=== PATIENT | male | born 1990 | race Caucasian/White ===

== ENCOUNTER → 2021-09-11 | Outpatient (CLI) | payer OTHER | LOC: RAD 14:45 | PROVIDERS: ATTEND Nurse Practitioner Family | DX: Z04.2 Encounter for examination and observation following work accident (principal); S53.491A Other sprain of right elbow, initial encounter; X58.XXXA Exposure to other specified factors, initial encounter; Z53.9 Procedure and treatment not carried out, unspecified reason ==